=== PATIENT | female | born 1960 | race Asian ===

== ENCOUNTER → 2016-10-23 | Outpatient (CLI) | payer MEDICARE, MEDICAID ==
[~2016-10-23] MED LIST: AZITHROMYCIN250 MG ORAL; CIPROFLOXACIN500 M2 ORAL; FLUCONAZOLE100 MG ORAL; LYRICA25 MG ORAL; LYRICA75 M1 ORAL; MECLIZINE HCL25 MG ORAL; NITROFURANTOIN100 M2 ORAL; PHENAZOPYRIDIN200 MG ORAL; ROBAXIN-750750 MG PO; TRAMADOL HCL50 MG ORAL
--- NOTE | 2016-10-24 15:05 | Diagnostic Imaging Report ---
Indication: SCREEN, previous BI-RADS 4 ultrasound Technique: Bilateral Craniocaudal and mediolateral oblique views were obtained. Comparison: 08/01/2015 04/07/15, 06/03/2013, 12/09/2013. Also prior sonograms of 08/23/2015, 12/09/2013 Findings: The breasts are heterogeneously dense, which may obscure small masses. No parenchymal asymmetry nor architectural distortion. There is a biopsy marker clip in the left breast at approximately 2:00. Biopsy of this was previously performed, lesion found to be a benign fibroadenoma. There is is 9 mm nodule at the approximately 4:00 position of the left breast which has been present since 2013 and remains unchanged. Uncertain as to whether this is the same lesion that was previously biopsied or a separate lesion. Note that the marker clip is somewhat remote from the mammographic abnormality. In the left breast axillary tail, there is a 4 mm well-circumscribed nodule which in retrospect has also been present since 2012 and is unchanged, probably benign axillary tail intramammary lymph node. There is a biopsy marker clip at the 11:00 position of the right breast. Facet of benign diagnosis on the is prior biopsy. No new dominant masses. No clustered microcalcifications. No skin thickening or retraction. No axillary lymphadenopathy. No significant interim change. Impression: No new mammographic abnormality. Note, however, that previous sonogram in August of 2015 demonstrated a sonographic abnormality in the 9:00 position left breast that was thought to be enlarging, and biopsy was recommended at that time. This has apparently been scheduled but not yet performed. Recommendation for biopsy of the sonographic abnormality remains in effect. BI-RADS category: 4-suspicious abnormality Breast density BI-RADS type C-heterogeneously dense breasts, which may obscure small masses
== END | disposition home or self-care (01) ==
LOC: ULS 09:57
DX: Z12.31 Encounter for screening mammogram for malignant neoplasm of breast (principal); R10.11 Right upper quadrant pain
CPT/HCPCS: 77067

== ENCOUNTER 2016-10-29 09:06 | Outpatient (CLI) | payer MEDICARE, MEDICAID ==
--- NOTE | 2016-10-29 13:55 | Diagnostic Imaging Report ---
Indications: Right upper quadrant abdominal pain, elevated liver function tests Technique: Transabdominal real-time grayscale and duplex Doppler imaging of the upper abdomen and retroperitoneum was performed. Findings: Comparison: None. Liver normal size and surface contour, diffusely increased parenchymal echogenicity. No focal lesions. Gallbladder not identified. Bile ducts nondilated within liver. Common bile duct 9 mm. Pancreas head and body unremarkable; tail obscured. Spleen unremarkable. Right kidney unremarkable. Left kidney contains 3 mm nodular echogenic non-shadowing focus in upper pole cortex, otherwise unremarkable. Abdominal aorta, intrahepatic portion of inferior vena cava patent, normal caliber. Duplex Doppler imaging demonstrates antegrade flow in splenic, portal, hepatic veins. No ascites. IMPRESSION: Hepatic steatosis Nonvisualization of gallbladder. Correlate with surgical history. Small non-shadowing, nonobstructing stone versus other nonspecific specular reflector left kidney Remainder of exam unremarkable.
== END 2016-10-29 11:06 | disposition home or self-care (01) ==
LOC: ULS 09:06
DX: R10.11 Right upper quadrant pain (principal); R79.89 Other specified abnormal findings of blood chemistry; K76.0 Fatty (change of) liver, not elsewhere classified
CPT/HCPCS: 76700

== ENCOUNTER 2016-10-31 09:36 | Day surgery (SDC) | payer MEDICARE, MEDICAID ==
--- NOTE | 2016-10-31 13:44 | Diagnostic Imaging Report ---
Indications: Enlarging mammographic nodule 9:00 left breast, BI-RADS category 4, scheduled for ultrasound-guided percutaneous core needle biopsy Technique: Real-time grayscale imaging of the left breast Findings: Comparison: 08/23/2015 Sharply circumscribed, smoothly marginated, uniformly hypoechoic nodule in the 9:00 position of the left breast has decreased in size, now 4.5 x 2 x 4 mm. It is otherwise unchanged in appearance. Similar 7 mm nodule in the 4:00 position of the left breast is unchanged. IMPRESSION: Decrease in size of left breast 9:00 nodule, indicating benignity. Scheduled biopsy therefore not indicated and will not be performed. Stable 4:00 nodule, similar in appearance to above BI-RADS category 2 Recommendation: Routine screening mammography
== END 2016-10-31 11:36 | disposition home or self-care (01) ==
LOC: ULS 09:36 → SUR 09:36
DX: N63 Unspecified lump in breast (principal)

== ENCOUNTER 2017-04-10 14:08 | Emergency (ER) | payer MEDICARE, OTHER ==
[~2017-04-10] VITALS: Ht 157.5 cm; Wt 63.5 kg
[2017-04-10 14:33] VITALS: BP 105/69
[2017-04-10] MEDS ORDERED: Mylanta II UD 30ml ORAL ONE (14:45)
[2017-04-10] MEDS ORDERED: Dicyclomine HCl 10mg/5ml oral soln ORAL ONE (14:45)
[2017-04-10 15:27] LABS: MEAN CORPUSCULAR HEMOGLOBIN 30.7 PG (27.0-31.0); MEAN CORPUSCULAR HGB CONC 34.2 G/DL (32.0-36.0); MEAN CORPUSCULAR VOLUME 90 FL (80-99); MEAN PLATELET VOLUME 5.1 FL (6.5-10.1); PLATELET COUNT 245 K/UL (150-450); RED BLOOD COUNT 4.63 M/UL (4.20-5.40); RED CELL DISTRIBUTION WIDTH 11.9 % (11.6-14.8); WHITE BLOOD COUNT 9.3 K/UL (4.8-10.8)
[2017-04-10 15:30] LABS: BASOPHILS % (AUTO) 0.3 % (0.0-2.0); EOSINOPHILS % (AUTO) 0.1 % (0.0-3.0); MONOCYTES % (AUTO) 3.3 % (1.0-10.0); NEUTROPHILS % (AUTO) 88.2 % (45.0-75.0)
[2017-04-10 15:33] LABS: PROTHROMBIN TIME 10.1 SEC (9.30-11.50)
[2017-04-10 15:35] LABS: ANION GAP 12 mmol/L (5-15); CALCIUM 8.8 MG/DL (8.5-10.1); CARBON DIOXIDE 24 MMOL/L (21-32); CHLORIDE 105 MMOL/L (98-107); CREATININE 0.8 MG/DL (0.55-1.30); GLOMERULAR FILTRATION RATE > 60 mL/min (>60); POTASSIUM 3.7 MMOL/L (3.5-5.1); SODIUM 141 MMOL/L (136-145)
[2017-04-10 15:49] LABS: APPEARANCE,URINE CLEAR; KETONES,URINE NEGATIVE (NEGATIVE); LEUKOCYTE ESTERASE ,URINE 2+ (NEGATIVE); NITRITE,URINE NEGATIVE (NEGATIVE); PH,URINE 6.5 (4.5-8.0); PROTEIN,URINE NEGATIVE (NEGATIVE); UROBILINOGEN,URINE NORMAL MG/DL (0.0-1.0)
[2017-04-10 15:49] LABS: ALANINE AMINOTRANSFERASE 42 U/L (12-78); ALBUMIN/GLOBULIN RATIO 0.6 (1.0-2.7); ASPARTATE AMINO TRANSFERASE 38 U/L (15-37); LIPASE 117 U/L (73-393); TOTAL PROTEIN 8.7 G/DL (6.4-8.2)
[2017-04-10 16:03] LABS: BACTERIA,URINE OCCASIONAL /HPF; SQUAMOUS EPITHELIAL CELL,UR FEW /LPF (NONE/OCC); WBC,URINE 0-2 /HPF (0 - 2)
[2017-04-10 16:47] VITALS: BP 106/62
[2017-04-10] MEDS ORDERED: BENTYL10 MG ORAL (17:25)
[2017-04-10] MEDS ORDERED: ZOFRAN4 MG ORAL (17:25)
[2017-04-10 17:30] VITALS: BP 106/65
--- NOTE | 2017-04-11 10:15 | Diagnostic Imaging Report ---
Clinical Indication: Abdominal distention Technique: No oral contrast utilized, per emergency room physician request IV administration nonionic contrast. Venous phase spiral acquisition obtained through the abdomen and pelvis. Multiplanar reconstructions were generated. Total dose length product 770 mGycm. CTDIvol(s) 15 mGy. Dose reduction achieved using automated exposure control Comparison: Reference made to abdomen ultrasound dated 10/29/2016 Findings: The appendix is normal. No evidence of diverticulosis or diverticulitis. Small bowel loops are diffusely prominent in caliber and fluid-filled, particularly distally. There is a sizable duodenal diverticulum. The distal esophagus is unremarkable. The stomach is somewhat distended with food. There is suggestion of wall thickening of the gastric antrum, but it is incompletely distended. The liver is diffusely hypoattenuating, consistent with fatty change. Subcentimeter low-attenuation lesion in segment 8 is too small to characterize the gallbladder is surgically absent. There is mild ectasia of the extrahepatic bile ducts. The pancreas, spleen, are unremarkable. There is an ill-defined area of low attenuation in the interpolar region of the right kidney. There is a left upper pole low-attenuation renal lesion which is too small to characterize. No retroperitoneal or mesenteric mass or adenopathy. No pelvic mass or adenopathy. The uterus is retroverted, slightly prominent and heterogeneous. The included lung bases demonstrate posterior dependent atelectatic changes. The bones demonstrate mild degenerative spondylosis changes. Impression: Equivocal mild distal gastric wall thickening, probably artifact of under distention, process such as gastritis or peptic ulcer disease not completely excludable. Correlate with clinical findings Ill-defined low-attenuation in the interpolar region of the right kidney, could indicate an area of focal nephritis bleed The above findings were not mentioned on the [facility] preliminary report, were discussed with Dr. Kiser in the emergency room at the time of interpretation Slightly prominent fluid-filled small bowel loops distally, doubtful significance, mild enteritis changes a possibility Evidence of prior cholecystectomy. Ectatic extrahepatic bile ducts are probably related to such, particularly in view of 9 mm common bile duct described on prior ultrasound. However, downstream obstruction not completely excludable, and correlation with liver function tests is recommended Fatty liver Slightly prominent heterogeneous uterus, fibroids a possibility Subcentimeter left upper pole renal lesion, too small to characterize, most likely benign cortical cyst Other findings as noted, including degenerative spondylosis, posterior dependent pulmonary atelectatic changes, duodenal diverticulum The remaining findings are in agreement with the [facility] preliminary report The CT scanner at [facility] is accredited by the [employer] and the scans are performed using protocols designed to limit radiation exposure to as low as reasonably achievable to attain images of sufficient resolution adequate for diagnostic evaluation.
--- NOTE | 2017-04-11 13:58 | Emergency Room Report ---
History of Present Illness General Chief Complaint: Abdominal Pain Source: Patient Present Illness HPI Patient is a 56 year-old female presented after increased vomiting and diarrhea. Patient reported having gradual onset of symptoms. She reported having intermittent abdominal cramping . She denied any fever. She reported having watery diarrhea. She denied any black or bloody stools. She denied recent travel. She stated she may have eaten some bad food. She denies any hematemesis. Pain is predominantly in the left lower abdomen and was crampy in nature. Allergies: Coded Allergies: ACETAMINOPHEN (Verified Allergy, 04/01/13) CODEINE (Verified Allergy, 03/27/13) Chicken Meat (Verified Allergy, 04/01/13) HYDROCODONE (Verified Allergy, 04/01/13) IBUPROFEN (Verified Allergy, 03/27/13) Meat (Verified Allergy, 04/01/13) Patient History Past Medical History: see triage record Reviewed Nursing Documentation: PMH: Agreed, PSxH: Agreed Nursing Documentation-PMH Past Medical History: No History, Except For Hx Cardiac Problems: No - Polyneuropathy, migraine Hx Hypertension: No Hx Pacemaker: No Hx Asthma: No Hx COPD: No Hx Diabetes: No Hx Cancer: No Hx Gastrointestinal Problems: Yes - GERD Hx Dialysis: No History Of Psychiatric Problem: No Hx Neurological Problems: No Hx Cerebrovascular Accident: No Hx Seizures: No Hx Vertigo: Yes Hx Dizziness: Yes Hx Headaches: Yes Hx Numbness: Yes - BLE Hx Weakness: Yes - BLE Hx Fatigue: Yes Hx Neurologic Surgery: No Review of Systems All Other Systems: negative except mentioned in HPI Physical Exam Vital Signs Date Time Temp Pulse Resp B/P (MAP) Pulse Ox O2 Delivery O2 Flow Rate FiO2 04/10/17 14:13 98.6 112 18 112/70 97 Room Air Sp02 EP Interpretation: reviewed, normal General Appearance: normal inspection, well appearing, no apparent distress, alert Head: atraumatic ENT: normal ENT inspection, hearing grossly normal, normal voice Neck: normal inspection, full range of motion, supple, no bony tend Respiratory: normal inspection, lungs clear, normal breath sounds, no respiratory distress, no retraction, no wheezing Cardiovascular #1: regular rate, rhythm, no edema Gastrointestinal: normal inspection, normal bowel sounds, non tender, soft, no guarding, no hernia Genitourinary: no CVA tenderness Musculoskeletal: normal inspection, back normal, normal range of motion Neurologic: normal inspection, alert, oriented x3, responsive, print line feeder III-XII nml as tested, speech normal Psychiatric: normal inspection, judgement/insight normal, mood/affect normal Skin: normal inspection, normal color, no rash Medical Decision Making Diagnostic Impression: Primary Impression: Diarrhea ER Course Patient presented for abdominal pain. Differential diagnoses included ischemic bowel, appendicitis, perforated viscus, abdominal aortic aneurysm, inferior myocardial infarction, viral gastroenteritis. Because of complexity of patient' s case laboratory testing and imaging studies were ordered.The patient was given IV fluids as well as oral medications for abdominal cramping. Patient reported having improvement n her symptoms. The patient is advised to follow up with primary care doctor in 1-2 days. Patient is advised to return if any worsening condition or if any changes in status that are concerning. Labs Test 04/10/17 14:50 04/10/17 15:40 White Blood Count 9.3 K/UL (4.8-10.8) Red Blood Count 4.63 M/UL (4.20-5.40) Hemoglobin 14.2 G/DL (12.0-16.0) Hematocrit 41.6 % (37.0-47.0) Mean Corpuscular Volume 90 FL (80-99) Mean Corpuscular Hemoglobin 30.7 PG (27.0-31.0) Mean Corpuscular Hemoglobin Concent 34.2 G/DL (32.0-36.0) Red Cell Distribution Width 11.9 % (11.6-14.8) Platelet Count 245 K/UL (150-450) Mean Platelet Volume 5.1 FL (6.5-10.1) Neutrophils (%) (Auto) 88.2 % (45.0-75.0) Lymphocytes (%) (Auto) 8.0 % (20.0-45.0) Monocytes (%) (Auto) 3.3 % (1.0-10.0) Eosinophils (%) (Auto) 0.1 % (0.0-3.0) Basophils (%) (Auto) 0.3 % (0.0-2.0) Prothrombin Time 10.1 SEC (9.30-11.50) Prothromb Time International Ratio 1.0 (0.9-1.1) Activated Partial Thromboplast Time 29 SEC (23-33) Sodium Level 141 MMOL/L (136-145) Potassium Level 3.7 MMOL/L (3.5-5.1) Chloride Level 105 MMOL/L (98-107) Carbon Dioxide Level 24 MMOL/L (21-32) Anion Gap 12 mmol/L (5-15) Blood Urea Nitrogen 13 mg/dL (7-18) Creatinine 0.8 MG/DL (0.55-1.30) Estimat Glomerular Filtration Rate > 60 mL/min (>60) Glucose Level 105 MG/DL (74-106) Calcium Level 8.8 MG/DL (8.5-10.1) Total Bilirubin 0.7 MG/DL (0.2-1.0) Aspartate Amino Transf (AST/SGOT) 38 U/L (15-37) Alanine Aminotransferase (ALT/SGPT) 42 U/L (12-78) Alkaline Phosphatase 71 U/L (46-116) Troponin I < 0.017 ng/mL (0.000-0.056) Total Protein 8.7 G/DL (6.4-8.2) Albumin 3.4 G/DL (3.4-5.0) Globulin 5.3 g/dL Albumin/Globulin Ratio 0.6 (1.0-2.7) Lipase 117 U/L (73-393) Urine Color Pale yellow Urine Appearance Clear Urine pH 6.5 (4.5-8.0) Urine Specific [place] 1.010 (1.005-1.035) Urine Protein Negative (NEGATIVE) Urine Glucose (UA) Negative (NEGATIVE) Urine Ketones Negative (NEGATIVE) Urine Occult Blood 2+ (NEGATIVE) Urine Nitrite Negative (NEGATIVE) Urine Bilirubin Negative (NEGATIVE) Urine Urobilinogen Normal MG/DL (0.0-1.0) Urine Leukocyte Esterase 2+ (NEGATIVE) Urine RBC 2-4 /HPF (0 - 2) Urine WBC 0-2 /HPF (0 - 2) Urine Squamous Epithelial Cells Few /LPF (NONE/OCC) Urine Bacteria Occasional /HPF (NONE) Urine HCG, Qualitative Negative Last Vital Signs Date Time Temp Pulse Resp B/P (MAP) Pulse Ox O2 Delivery O2 Flow Rate FiO2 04/10/17 17:30 98.9 111 16 106/65 99 Room Air Status: improved Disposition: HOME, SELF-CARE Condition: Stable Scripts Dicyclomine Hcl* (BENTYL*) 10 Mg Capsule 10 MG ORAL FOUR TIMES A DAY, #30 CAP Prov: Ash Gardner 04/10/17 Ondansetron (Zofran) 4 Mg Tablet 4 MG ORAL Q6H Y for Nausea & Vomiting, #30 TAB 0 Refills Prov: Ash Gardner 04/10/17 Referrals: NON PHYSICIAN (PCP) Patient Instructions: Abdominal Pain, Adult Ash Gardner Apr 11, 2017 13:58
--- NOTE | 2017-04-13 15:38 | Cardiology Report ---
APPROVED REPORT EKG Measurement Heart [id number] Sinus tachycardia Otherwise normal ECG
== END 2017-04-10 17:30 | disposition home or self-care (01) ==
LOC: EMR 14:50
DX: R19.7 Diarrhea, unspecified (principal); R11.2 Nausea with vomiting, unspecified; R10.9 Unspecified abdominal pain; K21.9 Gastro-esophageal reflux disease without esophagitis; Z88.6 Allergy status to analgesic agent; G62.9 Polyneuropathy, unspecified; K76.0 Fatty (change of) liver, not elsewhere classified
CPT/HCPCS: 36415; 74177; 80053; 81003; 81025; 83690; 84484; 85025; 85610; 85730; 86850; 86900; 86901; 93005; 96361; 96374; 96375; 99284; J2405; Q9967

== ENCOUNTER 2017-11-15 09:24 | Emergency (ER) | payer MEDICARE, MEDICAID ==
[~2017-11-15] VITALS: Ht 157.5 cm; Wt 62.6 kg
[~2017-11-15 09:24] MED LIST changes: +BENTYL10 MG ORAL; +ZOFRAN4 MG ORAL
[2017-11-15] MEDS ORDERED: DEXILANT60 MG ORAL (09:45)
[2017-11-15] MEDS ORDERED: HYDROCODON-ACE1 EA15 ORAL (09:45)
[2017-11-15] MEDS ORDERED: LORAZEPAM1 MG ORAL (09:46)
[2017-11-15] MEDS ORDERED: CREON DR 36,001 EACH PO (09:47)
[2017-11-15] MEDS ORDERED: CAFFEINE ORAL (09:49)
[2017-11-15] MEDS ORDERED: ASPIRIN ORAL (09:49)
[2017-11-15] MEDS ORDERED: BUTALBITAL ORAL (09:49)
[2017-11-15 09:51] VITALS: BP 100/65
[2017-11-15] MEDS ORDERED: Lidocaine 2% Visc 15ml soln ORAL ONE (10:00)
[2017-11-15] MEDS ORDERED: Dicyclomine HCl 10mg/5ml oral soln ORAL ONE (10:00)
[2017-11-15] MEDS ORDERED: Mylanta II UD 30ml ORAL ONE (10:00)
[2017-11-15 10:18] LABS: BASOPHILS % (AUTO) 0.9 % (0.0-2.0); EOSINOPHILS % (AUTO) 1.9 % (0.0-3.0); HEMATOCRIT 39.3 % (37.0-47.0); HEMOGLOBIN 13.2 G/DL (12.0-16.0); LYMPHOCYTES % (AUTO) 33.2 % (20.0-45.0); MEAN CORPUSCULAR VOLUME 87 FL (80-99); MONOCYTES % (AUTO) 6.6 % (1.0-10.0); NEUTROPHILS % (AUTO) 57.5 % (45.0-75.0); PLATELET COUNT 247 K/UL (150-450); RED CELL DISTRIBUTION WIDTH 12.3 % (11.6-14.8); WHITE BLOOD COUNT 6.4 K/UL (4.8-10.8)
[2017-11-15 10:19] LABS: APPEARANCE,URINE CLEAR; BILIRUBIN, URINE NEGATIVE (NEGATIVE); COLOR,URINE PALE YELLOW; GLUCOSE, URINE (UA) NEGATIVE (NEGATIVE); KETONES,URINE NEGATIVE (NEGATIVE); LEUKOCYTE ESTERASE ,URINE 2+ (NEGATIVE); NITRITE,URINE NEGATIVE (NEGATIVE); PH,URINE 5 (4.5-8.0); PROTEIN,URINE NEGATIVE (NEGATIVE); UROBILINOGEN,URINE NORMAL MG/DL (0.0-1.0)
[2017-11-15 10:35] LABS: ANION GAP 7 mmol/L (5-15); BLOOD UREA NITROGEN 17 mg/dL (7-18); CARBON DIOXIDE 28 MMOL/L (21-32); CHLORIDE 105 MMOL/L (98-107); CREATININE 0.7 MG/DL (0.55-1.30); POTASSIUM 4.3 MMOL/L (3.5-5.1); SODIUM 140 MMOL/L (136-145)
[2017-11-15 10:39] LABS: ALANINE AMINOTRANSFERASE 46 U/L (12-78); ALBUMIN 3.6 G/DL (3.4-5.0); ALBUMIN/GLOBULIN RATIO 0.7 (1.0-2.7); ALKALINE PHOSPHATASE 90 U/L (46-116); ASPARTATE AMINO TRANSFERASE 30 U/L (15-37); BILIRUBIN,TOTAL 0.5 MG/DL (0.2-1.0)
[2017-11-15] MEDS ORDERED: Norco 5mg/325mg tab ORAL ONE (11:15)
[2017-11-15 11:17] VITALS: BP 95/59
[2017-11-15] MEDS ORDERED: NORCO 5-325 TA1 EACH ORAL (13:34)
[2017-11-15 14:01] VITALS: BP 113/63
[2017-11-15 14:03] VITALS: BP 113/63
--- NOTE | 2017-11-15 14:03 | Emergency Room Report ---
History of Present Illness General Chief Complaint: Abdominal Pain Source: Patient Present Illness HPI 57-year-old female presents ED complaining of abdominal pain. States she's had this pain for the last 4 months. Pain is localized upper abdomens and right upper quadrant. Pain is 10 out of 10, sharp, nonradiating. Notes history of acid reflux. States they her pancreas is "inflamed". States her medications are not helping. Supposed to be referred to a specialist by her PMD and is waiting for referral. Denies chest pain or shortness of breath. Denies nausea or vomiting. No other aggravating relieving factors. Denies any other associated symptoms Allergies: Coded Allergies: CODEINE (Verified Allergy, Unknown, 11/15/17) Chicken Meat (Verified Allergy, Unknown, 11/15/17) IBUPROFEN (Verified Allergy, Unknown, 11/15/17) Meat (Verified Allergy, Unknown, 11/15/17) Patient History Past Medical History: none Past Surgical History: emanuel Pertinent Family History: none Social History: Denies: smoking, alcohol use, drug use Now: No Immunizations: UTD Reviewed Nursing Documentation: PMH: Agreed; PSxH: Agreed Nursing Documentation-PMH Past Medical History: No History, Except For Hx Cardiac Problems: No - Polyneuropathy, migraine Hx Hypertension: No Hx Pacemaker: No Hx Asthma: No Hx COPD: No Hx Diabetes: No Hx Cancer: No Hx Gastrointestinal Problems: No Hx Dialysis: No History Of Psychiatric Problem: No Hx Neurological Problems: No Hx Cerebrovascular Accident: No Hx Seizures: No Hx Vertigo: Yes Hx Dizziness: Yes Hx Headaches: Yes Hx Numbness: Yes - BLE Hx Weakness: Yes - BLE Hx Fatigue: Yes Hx Neurologic Surgery: No Review of Systems All Other Systems: negative except mentioned in HPI Physical Exam Vital Signs Date Time Temp Pulse Resp B/P (MAP) Pulse Ox O2 Delivery O2 Flow Rate FiO2 11/15/17 09:34 97.8 73 16 100/65 98 Room Air 97.9 Sp02 EP Interpretation: reviewed, normal General Appearance: no apparent distress, alert, GCS 15, non-toxic Head: normocephalic, atraumatic Eyes: bilateral eye normal inspection, bilateral eye PERRL ENT: hearing grossly normal, normal pharynx, no angioedema, normal voice Neck: full range of motion, supple/symm/no masses Respiratory: chest non-tender, lungs clear, normal breath sounds, speaking full sentences Cardiovascular #1: regular rate, rhythm, no edema Cardiovascular #2: 2+ carotid (R), 2+ carotid (L), 2+ radial (R), 2+ radial (L) , 2+ dorsalis pedis (R), 2+ dorsalis pedis (L) Gastrointestinal: normal bowel sounds, soft, non-distended, no guarding, no rebound, tenderness - RUQ Rectal: deferred Genitourinary: normal inspection, no CVA tenderness Musculoskeletal: back normal, gait/station normal, normal range of motion, non- tender Neurologic: alert, oriented x3, responsive, motor strength/tone normal, sensory intact, speech normal Psychiatric: judgement/insight normal, memory normal, mood/affect normal, no suicidal/homicidal ideation Reflexes: 3+ bicep (R), 3+ bicep (L), 3+ tricep (R), 3+ tricep (L), 3+ knee (R) , 3+ knee (L) Skin: normal color, no rash, warm/dry, well hydrated Lymphatic: no adenopathy Medical Decision Making Diagnostic Impression: Primary Impression: Fatty liver Additional Impression: Abdominal pain Qualified Codes: R10.11 - Right upper quadrant pain ER Course Hospital Course 57-year-old M presents to ED with abdominal pain Differential diagnosis includes-appendicitis, cholecystitis, small bowel obstruction, gastritis, Clinical course Patient placed on stretcher. After initial history and physical I ordered labs , IV fluids, pain medications and ABD US Labs - no leukocytosis, electrolytes ok, LFTs normal, UA unremarkable ABD US - fatty liver, no acute process Upon reassessment, patient states pain has improved. Discussed findings with patient. Patient appears nontoxic. Soft abdomen. Tolerating by mouth intake. Patient states for discharge pending outpatient follow-up I feel this is a highly complex case requiring extensive working including EKG/ Rhythm strip, Xray/CT/US, Blood/urine lab work, repeat exams while in ED, and administration of strong opiates/narcotics for pain control, admission to hospital or close patient follow up. Diagnosis - fatty liver, abdominal pain Stable and discharged to home with Rx [place]. Followup with PMD. Return to ED if symptoms recur or worsen Labs Test 11/15/17 10:05 White Blood Count 6.4 K/UL (4.8-10.8) Red Blood Count 4.50 M/UL (4.20-5.40) Hemoglobin 13.2 G/DL (12.0-16.0) Hematocrit 39.3 % (37.0-47.0) Mean Corpuscular Volume 87 FL (80-99) Mean Corpuscular Hemoglobin 29.3 PG (27.0-31.0) Mean Corpuscular Hemoglobin Concent 33.5 G/DL (32.0-36.0) Red Cell Distribution Width 12.3 % (11.6-14.8) Platelet Count 247 K/UL (150-450) Mean Platelet Volume 4.9 FL (6.5-10.1) Neutrophils (%) (Auto) 57.5 % (45.0-75.0) Lymphocytes (%) (Auto) 33.2 % (20.0-45.0) Monocytes (%) (Auto) 6.6 % (1.0-10.0) Eosinophils (%) (Auto) 1.9 % (0.0-3.0) Basophils (%) (Auto) 0.9 % (0.0-2.0) Urine Color Pale yellow Urine Appearance Clear Urine pH 5 (4.5-8.0) Urine Specific [place] 1.010 (1.005-1.035) Urine Protein Negative (NEGATIVE) Urine Glucose (UA) Negative (NEGATIVE) Urine Ketones Negative (NEGATIVE) Urine Occult Blood 1+ (NEGATIVE) Urine Nitrite Negative (NEGATIVE) Urine Bilirubin Negative (NEGATIVE) Urine Urobilinogen Normal MG/DL (0.0-1.0) Urine Leukocyte Esterase 2+ (NEGATIVE) Urine RBC 0-2 /HPF (0 - 2) Urine WBC 2-4 /HPF (0 - 2) Urine Squamous Epithelial Cells Few /LPF (NONE/OCC) Urine Bacteria Occasional /HPF (NONE) Sodium Level 140 MMOL/L (136-145) Potassium Level 4.3 MMOL/L (3.5-5.1) Chloride Level 105 MMOL/L (98-107) Carbon Dioxide Level 28 MMOL/L (21-32) Anion Gap 7 mmol/L (5-15) Blood Urea Nitrogen 17 mg/dL (7-18) Creatinine 0.7 MG/DL (0.55-1.30) Estimat Glomerular Filtration Rate > 60 mL/min (>60) Glucose Level 96 MG/DL (74-106) Calcium Level 9.0 MG/DL (8.5-10.1) Total Bilirubin 0.5 MG/DL (0.2-1.0) Aspartate Amino Transf (AST/SGOT) 30 U/L (15-37) Alanine Aminotransferase (ALT/SGPT) 46 U/L (12-78) Alkaline Phosphatase 90 U/L (46-116) Total Protein 8.9 G/DL (6.4-8.2) Albumin 3.6 G/DL (3.4-5.0) Globulin 5.3 g/dL Albumin/Globulin Ratio 0.7 (1.0-2.7) Lipase 203 U/L (73-393) CT/MRI/US Diagnostic Results CT/MRI/US Diagnostic Results : Imaging Test Ordered: RUQ US Impression fatty liver. no acute process Last Vital Signs Date Time Temp Pulse Resp B/P (MAP) Pulse Ox O2 Delivery O2 Flow Rate FiO2 11/15/17 11:49 208.2 11/15/17 11:17 62 22 95/59 100 Room Air Status: improved Disposition: HOME, SELF-CARE Condition: Stable Scripts Hydrocodone Bit/Acetaminophen 5-325* (NORCO 5-325*) 1 Each Tablet 1 TAB ORAL Q6H PRN for For Pain, #10 TAB 0 Refills Prov: Deepak Quiroga MD 11/15/17 Referrals: Ty Guerrier MD Patient Instructions: Fatty Liver Deepak Quiroga MD Nov 15, 2017 14:03
--- NOTE | 2017-11-15 16:16 | Diagnostic Imaging Report ---
EXAM: US Abdomen Complete CLINICAL HISTORY: ABD PAIN TECHNIQUE: Real-time ultrasound of the abdomen (complete) with image documentation. COMPARISON: No relevant prior studies available. FINDINGS: Liver: Echogenic liver that may suggest fatty infiltration or hepatocellular disease. Gallbladder: Cholecystectomy. Common bile duct measures 9 mm, within normal limits post cholecystectomy. Common bile duct: Unremarkable as visualized. Pancreas: Unremarkable as visualized. Kidneys: No hydronephrosis. Can't exclude small complex left renal cyst. Spleen: No splenomegaly. Aorta: Limited visualization of the aorta. Inferior vena cava: Not visualized IMPRESSION: Cholecystectomy. Common bile duct measures 9 mm, within normal limits post cholecystectomy.
== END 2017-11-15 14:05 | disposition home or self-care (01) ==
LOC: EMR 10:19
DX: K76.0 Fatty (change of) liver, not elsewhere classified (principal); K21.9 Gastro-esophageal reflux disease without esophagitis; Z88.6 Allergy status to analgesic agent; Z91.018 Allergy to other foods
CPT/HCPCS: 36415; 76700; 80053; 81003; 83690; 85025; 96360; 96374; 96375; 99284; J2405; S0028

== ENCOUNTER 2018-02-03 17:59 | Observation (INO) | payer MEDICARE, MEDICAID ==
[~2018-02-03] VITALS: Ht 157.5 cm; Wt 53.5 kg
[~2018-02-03 17:59] MED LIST changes: +ASPIRIN ORAL; +BUTALBITAL ORAL; +CAFFEINE ORAL; +CREON DR 36,001 EACH PO; +DEXILANT60 MG ORAL; +HYDROCODON-ACE1 EA15 ORAL; +LORAZEPAM1 MG ORAL; +NORCO 5-325 TA1 EACH ORAL
[2018-02-03 18:05] VITALS: BP 135/78
[2018-02-03] MEDS ORDERED: Sodium Chloride 500ML 500 ML IV ONE ×2 (18:20→19:45)
[2018-02-03] MEDS ORDERED: Meclizine 25mg tab ORAL ONE (18:30)
--- NOTE | 2018-02-03 19:12 | Emergency Room Report ---
History of Present Illness General Chief Complaint: General Complaint Source: Patient, Medical Record Present Illness HPI Patient is a 57-year-old female sent in by Dr. Adam Guerrier after increased epigastric discomfort and nausea. Patient had previous history of neuropathy and had been previously started on IVIG. The patient was noted to have increased epigastric discomfort was started on IV pain medications. Patient subsequent became nauseated and felt dizzy. She reported having increased epigastric pain. Patient previously been taking acid blockers for stomach. She denied any hematemesis or recent bloody stools. The patient presented increased generalized pain. Allergies: Coded Allergies: CODEINE (Verified Allergy, Unknown, 11/15/17) Chicken Meat (Verified Allergy, Unknown, 11/15/17) IBUPROFEN (Verified Allergy, Unknown, 11/15/17) Meat (Verified Allergy, Unknown, 11/15/17) Patient History Past Medical History: see triage record Last Menstrual Period: menopause Reviewed Nursing Documentation: PMH: Agreed; PSxH: Agreed Nursing Documentation-PMH Past Medical History: No History, Except For Hx Cardiac Problems: No - Polyneuropathy, migraine Hx Hypertension: No Hx Pacemaker: No Hx Asthma: No Hx COPD: No Hx Diabetes: No Hx Cancer: No Hx Gastrointestinal Problems: No Hx Dialysis: No Hx Neurological Problems: No Hx Cerebrovascular Accident: No Hx Seizures: No Hx Vertigo: Yes Hx Dizziness: Yes Hx Headaches: Yes Hx Numbness: Yes - BLE Hx Weakness: Yes - BLE Hx Fatigue: Yes Hx Neurologic Surgery: No Review of Systems All Other Systems: negative except mentioned in HPI Physical Exam Vital Signs Date Time Temp Pulse Resp B/P (MAP) Pulse Ox O2 Delivery O2 Flow Rate FiO2 02/03/18 18:04 98.1 70 18 131/77 98 Room Air 98.1 Sp02 EP Interpretation: reviewed, normal General Appearance: normal inspection, well appearing, no apparent distress, alert, GCS 15, Chronically Ill Head: atraumatic ENT: normal ENT inspection, hearing grossly normal, normal voice Neck: normal inspection, full range of motion, supple, no bony tend Respiratory: normal inspection, lungs clear, normal breath sounds, no respiratory distress, no retraction, no wheezing Cardiovascular #1: normal peripheral pulses, regular rate, rhythm, no edema Gastrointestinal: normal inspection, normal bowel sounds, non tender, soft, no guarding, no hernia Genitourinary: no CVA tenderness Musculoskeletal: normal inspection, back normal, normal range of motion Neurologic: normal inspection, alert, oriented x3, responsive, board certified family physician III-XII nml as tested, speech normal Psychiatric: normal inspection, judgement/insight normal, mood/affect normal Skin: normal inspection, normal color, no rash Medical Decision Making Diagnostic Impression: Primary Impression: CIDP (chronic inflammatory demyelinating polyneuropathy) Additional Impressions: Abdominal pain Vertigo ER Course Patient presented for abdominal pain. Differential diagnoses included ischemic bowel, appendicitis, perforated viscus, abdominal aortic aneurysm, inferior myocardial infarction, viral gastroenteritis Because of complexity of patient's case laboratory testing and imaging studies were ordered.The laboratory testing was unremarkable. Patient was given IV fluids as well as IV antiemetics. The patient was noted to have a persistent vomiting. Patient been given pain medications at Dr. Guerrier's office.Patient was discussed with Dr. Fly Wagner is covering for [facility]. The patient be admitted due to persistent vomiting. Labs Test 02/03/18 18:30 White Blood Count 9.6 K/UL (4.8-10.8) Red Blood Count 4.13 M/UL (4.20-5.40) Hemoglobin 12.5 G/DL (12.0-16.0) Hematocrit 34.8 % (37.0-47.0) Mean Corpuscular Volume 84 FL (80-99) Mean Corpuscular Hemoglobin 30.3 PG (27.0-31.0) Mean Corpuscular Hemoglobin Concent 35.9 G/DL (32.0-36.0) Red Cell Distribution Width 11.6 % (11.6-14.8) Platelet Count 221 K/UL (150-450) Mean Platelet Volume 4.7 FL (6.5-10.1) Neutrophils (%) (Auto) 84.8 % (45.0-75.0) Lymphocytes (%) (Auto) 12.2 % (20.0-45.0) Monocytes (%) (Auto) 2.3 % (1.0-10.0) Eosinophils (%) (Auto) 0.1 % (0.0-3.0) Basophils (%) (Auto) 0.6 % (0.0-2.0) Prothrombin Time 11.6 SEC (9.30-11.50) Prothromb Time International Ratio 1.1 (0.9-1.1) Activated Partial Thromboplast Time 30 SEC (23-33) Sodium Level 137 MMOL/L (136-145) Potassium Level 3.6 MMOL/L (3.5-5.1) Chloride Level 104 MMOL/L (98-107) Carbon Dioxide Level 23 MMOL/L (21-32) Anion Gap 10 mmol/L (5-15) Blood Urea Nitrogen 15 mg/dL (7-18) Creatinine 0.7 MG/DL (0.55-1.30) Estimat Glomerular Filtration Rate > 60 mL/min (>60) Glucose Level 111 MG/DL (74-106) Calcium Level 8.8 MG/DL (8.5-10.1) Total Bilirubin 0.4 MG/DL (0.2-1.0) Aspartate Amino Transf (AST/SGOT) 43 U/L (15-37) Alanine Aminotransferase (ALT/SGPT) 61 U/L (12-78) Alkaline Phosphatase 108 U/L (46-116) Troponin I 0.004 ng/mL (0.000-0.056) Total Protein 9.6 G/DL (6.4-8.2) Albumin 3.2 G/DL (3.4-5.0) Globulin 6.4 g/dL Albumin/Globulin Ratio 0.5 (1.0-2.7) Lipase 155 U/L (73-393) EKG Diagnostic Results Rate: normal Rhythm: NSR ST Segments: other - incomplete RBBB, no acute st changes Last Vital Signs Date Time Temp Pulse Resp B/P (MAP) Pulse Ox O2 Delivery O2 Flow Rate FiO2 02/03/18 18:04 98.1 70 18 131/77 98 Room Air 98.1 Status: unchanged Disposition: ADMITTED INPATIENT Condition: Serious Ash Gardner MD Feb 03, 2018 19:12
[2018-02-03 19:16] LABS: BASOPHILS % (AUTO) 0.6 % (0.0-2.0); EOSINOPHILS % (AUTO) 0.1 % (0.0-3.0); HEMATOCRIT 34.8 % (37.0-47.0); HEMOGLOBIN 12.5 G/DL (12.0-16.0); LYMPHOCYTES % (AUTO) 12.2 % (20.0-45.0); MEAN CORPUSCULAR VOLUME 84 FL (80-99); MONOCYTES % (AUTO) 2.3 % (1.0-10.0); NEUTROPHILS % (AUTO) 84.8 % (45.0-75.0); PLATELET COUNT 221 K/UL (150-450); RED BLOOD COUNT 4.13 M/UL (4.20-5.40); RED CELL DISTRIBUTION WIDTH 11.6 % (11.6-14.8); WHITE BLOOD COUNT 9.6 K/UL (4.8-10.8)
[2018-02-03 19:33] LABS: ANION GAP 10 mmol/L (5-15); BLOOD UREA NITROGEN 15 mg/dL (7-18); CALCIUM 8.8 MG/DL (8.5-10.1); CARBON DIOXIDE 23 MMOL/L (21-32); CHLORIDE 104 MMOL/L (98-107); CREATININE 0.7 MG/DL (0.55-1.30); POTASSIUM 3.6 MMOL/L (3.5-5.1); SODIUM 137 MMOL/L (136-145)
[2018-02-03 19:39] LABS: INR 1.1 (0.9-1.1)
[2018-02-03 19:40] LABS: ALANINE AMINOTRANSFERASE 61 U/L (12-78); ALBUMIN 3.2 G/DL (3.4-5.0); ALBUMIN/GLOBULIN RATIO 0.5 (1.0-2.7); ALKALINE PHOSPHATASE 108 U/L (46-116); ASPARTATE AMINO TRANSFERASE 43 U/L (15-37); BILIRUBIN,TOTAL 0.4 MG/DL (0.2-1.0)
[2018-02-03 21:14] VITALS: BP 107/47
[2018-02-03 21:14] LABS: APPEARANCE,URINE CLEAR; BILIRUBIN, URINE NEGATIVE (NEGATIVE); COLOR,URINE PALE YELLOW; GLUCOSE, URINE (UA) NEGATIVE (NEGATIVE); KETONES,URINE NEGATIVE (NEGATIVE); LEUKOCYTE ESTERASE ,URINE 1+ (NEGATIVE); NITRITE,URINE NEGATIVE (NEGATIVE); PROTEIN,URINE NEGATIVE (NEGATIVE); UROBILINOGEN,URINE NORMAL MG/DL (0.0-1.0)
[2018-02-03 22:18] VITALS: BP 115/68
[2018-02-03] MEDS ORDERED: LIBRAX1 EA ORAL (22:37)
[2018-02-03] MEDS ORDERED: MECLIZINE HCL25 MG ORAL (22:37)
[2018-02-03] MEDS ORDERED: FIORINAL 50-321 EACH PO ×2 (22:37)
[2018-02-03] MEDS ORDERED: LYRICA50 MG ORAL (22:37)
[2018-02-03] MEDS ORDERED: CYCLOBENZAPRINE10 MG ORAL (22:37)
[2018-02-03] MEDS ORDERED: PRIVIGEN50 ML IV (22:37)
[2018-02-03] MEDS ORDERED: CREON DR 36,001 EACH PO (22:37)
[2018-02-03] MEDS ORDERED: NORCO 5-325 TA1 EACH ORAL (22:37)
[2018-02-03] MEDS ORDERED: DEXILANT60 MG ORAL (22:37)
[2018-02-03] MEDS ORDERED: FAMOTIDINE20 MG ORAL (22:37)
[2018-02-03] MEDS ORDERED: Norco 5mg/325mg tab ORAL PRN (23:45)
[2018-02-03] MEDS ORDERED: Meclizine 25mg tab ORAL PRN (23:45)
[2018-02-04] MEDS: D5 1/2NS 1,000 ML IV SCH ×2 (00:46→12:35)
[2018-02-04 06:10] LABS: BASOPHILS % (AUTO) 0.8 % (0.0-2.0); HEMATOCRIT 32.5 % (37.0-47.0); HEMOGLOBIN 11.2 G/DL (12.0-16.0); LYMPHOCYTES % (AUTO) 28.8 % (20.0-45.0); MEAN CORPUSCULAR VOLUME 86 FL (80-99); MONOCYTES % (AUTO) 6.3 % (1.0-10.0); NEUTROPHILS % (AUTO) 61.1 % (45.0-75.0); PLATELET COUNT 220 K/UL (150-450); RED CELL DISTRIBUTION WIDTH 11.8 % (11.6-14.8); WHITE BLOOD COUNT 7.9 K/UL (4.8-10.8)
[2018-02-04 06:47] LABS: ALANINE AMINOTRANSFERASE 52 U/L (12-78); ALBUMIN 2.8 G/DL (3.4-5.0); ALBUMIN/GLOBULIN RATIO 0.5 (1.0-2.7); ALKALINE PHOSPHATASE 91 U/L (46-116); AMYLASE 55 U/L (25-115); ANION GAP 2 mmol/L (5-15); ASPARTATE AMINO TRANSFERASE 30 U/L (15-37); BILIRUBIN,TOTAL 0.6 MG/DL (0.2-1.0); BLOOD UREA NITROGEN 12 mg/dL (7-18); CALCIUM 8.6 MG/DL (8.5-10.1); CARBON DIOXIDE 28 MMOL/L (21-32); CHLORIDE 109 MMOL/L (98-107); CREATININE 0.8 MG/DL (0.55-1.30); POTASSIUM 3.9 MMOL/L (3.5-5.1); SODIUM 139 MMOL/L (136-145)
[2018-02-04 08:00] VITALS: BP 104/66
[2018-02-04] MEDS: Lac Hydrin 12% Lotion 8oz TOPIC SCH ×2 (09:00→09:07)
[2018-02-04] MEDS ORDERED: Lyrica 50mg cap ORAL SCH (09:00)
[2018-02-04] MEDS: Cyclobenzaprine 10mg Tab ORAL SCH ×2 (09:07→13:00)
[2018-02-04 12:00] VITALS: BP 99/61
[2018-02-04 13:00] VITALS: BP 102/64
[2018-02-04] MEDS ORDERED: Pancrease Cap ORAL SCH (13:00)
[2018-02-04] MEDS ORDERED: D5 1/2NS 1000ml IV ONE (13:19)
--- NOTE | 2018-02-04 14:07 | History and Physical ---
History of Present Illness General Date patient seen: Feb 04, 2018 Time patient seen: 10:00 Reason for Hospitalization: Abdominal pain and dizziness Present Illness HPI 57 year old woman with history of CIDP on IVIg infusions, migraines, chronic abdominal pain who presents with general weakness, dizziness and burning epigastric discomfort after getting an IVIg infusion. She did not feel comfortable going home and was referred to the ED for evaluation. She denies chest pain, dyspnea, fever, chills, diarrhea, constipation. Allergies: Coded Allergies: CODEINE (Verified Allergy, Unknown, 11/15/17) Chicken Meat (Verified Allergy, Unknown, 11/15/17) IBUPROFEN (Verified Allergy, Unknown, 11/15/17) Meat (Verified Allergy, Unknown, 11/15/17) Medication History Scheduled Aspirin/Caffeine/Butalbital (Fiorinal 50-325-40 mg Capsule), 1 EA PO BID, ( Reported) Azithromycin* (Zithromax*), 250 MG ORAL DAILY Chlordiazepoxide/Clidinium (Librax Capsule), 1 EA ORAL EVERY 8 HOURS, (Reported) Cyclobenzaprine Hcl* (Flexeril*), 10 MG ORAL THREE TIMES A DAY, (Reported) Dexlansoprazole (Dexilant), 60 MG ORAL DAILY, (Reported) Dexlansoprazole (Dexilant), 60 MG ORAL DAILY, (Reported) Dicyclomine Hcl* (Bentyl*), 10 MG ORAL FOUR TIMES A DAY Famotidine (Famotidine), 20 MG ORAL TWICE A DAY, (Reported) Fluconazole (Fluconazole), 100 MG ORAL DAILY Immune Globulin,Gamma(Igg) (Privigen), 30 ML IV Q 2 WEEKS, (Reported) Lipase/Protease/Amylase (Creon Dr 36,000 Units Capsule), 3 EACH PO Q AC, ( Reported) Meclizine Hcl* (Meclizine*), 25 MG ORAL THREE TIMES A DAY, (Reported) Methocarbamol* (Robaxin-750*), 750 MG PO PRN, (Reported) Nitrofurantoin Monohyd/M-Cryst* (Macrobid 100 Mg*), 100 MG ORAL EVERY 12 HOURS Phenazopyridine Hcl* (Pyridium*), 200 MG ORAL THREE TIMES A DAY Pregabalin* (Lyrica*), 75 MG ORAL THREE TIMES A DAY, (Reported) Tramadol Hcl* (Ultram*), 50 MG ORAL TID, (Reported) Scheduled PRN Hydrocodone Bit/Acetaminophen 5-325* ([place] 5-325*), 1 TAB ORAL Q6H PRN for For Pain Lorazepam* (Lorazepam*), 1 MG ORAL THREE TIMES A DAY PRN for For Anxiety, ( Reported) Ondansetron (Zofran), 4 MG ORAL Q6H PRN for Nausea & Vomiting [Asa/Butal/Caff], 1 CAP ORAL EVERY 6 HOURS PRN for For Pain, (Reported) Discontinued Medications Aspirin/Caffeine/Butalbital (Fiorinal 50-325-40 mg Capsule), 1 EA PO, (Reported) Discontinued Reason: MD discontinued med Hydrocodone Bit/Acetaminophen 5-325* ([place] 5-325*), 1 TAB ORAL Q4-6 PRN for For Pain, (Reported) Discontinued Reason: MD discontinued med Hydrocodone/Acetaminophen 5-325* (Hydrocodone/Acetaminophen 5-325*), 1 TAB ORAL Q4H PRN for For Pain, (Reported) Discontinued Reason: MD discontinued med Lipase/Protease/Amylase (Creon Dr 36,000 Units Capsule), 1 EACH PO, (Reported) Discontinued Reason: MD discontinued med Meclizine Hcl* (Meclizine*), 25 MG ORAL DAILY, (Reported) Discontinued Reason: MD discontinued med Pregabalin (Lyrica), 50 MG ORAL DAILY, (Reported) Discontinued Reason: MD discontinued med Patient History Healthcare decision maker SELF Resuscitation status Full Code Advanced Directive on File Past Medical/Surgical History Past Medical/Surgical History: (1) Chronic tension headache (2) Labyrinthine dysfunction (3) Vertigo (4) CIDP (chronic inflammatory demyelinating polyneuropathy) Family History Family History: No history of heart disease or stroke Social History Social History: (1) No tobacco use Review of Systems Constitutional: Denies: chills, sweats, fever Eye: Denies: eye pain, blurred vision ENT: Denies: ear pain, ear discharge Respiratory: Denies: orthopnea, shortness of breath Cardiovascular: Denies: chest pain, edema, palpitations Gastrointestinal: Reports: abdominal pain Genitourinary: Denies: discharge, frequency Musculoskeletal: Denies: back pain, joint pain Skin: Denies: rash Psychiatric: Denies: anxiety Neurological: Reports: dizziness Endocrine: Denies: excessive sweating Hematologic/Lymphatic: Denies: anemia Physical Exam General Appearance: no apparent distress, alert HEENT: normocephalic, atraumatic Neck: non-tender, normal inspection Respiratory/Chest: chest wall non-tender, lungs clear Cardiovascular/Chest: normal peripheral pulses, normal rate Abdomen: normal bowel sounds, non tender Extremities: normal range of motion, non-tender Skin Exam: normal pigmentation Neurologic: director of social services II-XII grossly normal, no motor/sensory deficits, alert, oriented x 3 Last 24 Hour Vital Signs Date Time Temp Pulse Resp B/P (MAP) Pulse Ox O2 Delivery O2 Flow Rate FiO2 02/04/18 13:00 98.2 68 20 102/64 (77) 98 98.2 02/04/18 12:00 98.1 65 20 99/61 (74) 98 98.1 02/04/18 09:00 Room Air 02/04/18 08:00 98.1 71 18 104/66 (79) 100 98.1 02/04/18 01:49 Room Air 02/03/18 22:18 97.0 62 20 115/68 (84) 100 97.0 02/03/18 22:05 97.7 63 22 107/47 98 Room Air 97.7 02/03/18 21:14 97.7 63 22 107/47 98 Room Air 97.7 02/03/18 18:05 98.1 72 18 135/78 98 Room Air 98.1 02/03/18 18:04 98.1 70 18 131/77 98 Room Air 98.1 Intake and Output 02/03/18 02/04/18 19:00 07:00 Intake Total 1225 ml Balance 1225 ml Intake IV Total 1075 ml Other 150 ml # Voids 3 # Bowel Movements 1 Laboratory Tests Test 02/03/18 18:30 02/03/18 20:40 02/04/18 05:40 White Blood Count 9.6 K/UL (4.8-10.8) 7.9 K/UL (4.8-10.8) Red Blood Count 4.13 M/UL (4.20-5.40) L 3.80 M/UL (4.20-5.40) L Hemoglobin 12.5 G/DL (12.0-16.0) 11.2 G/DL (12.0-16.0) L Hematocrit 34.8 % (37.0-47.0) L 32.5 % (37.0-47.0) L Mean Corpuscular Volume 84 FL (80-99) 86 FL (80-99) Mean Corpuscular Hemoglobin 30.3 PG (27.0-31.0) 29.5 PG (27.0-31.0) Mean Corpuscular Hemoglobin Concent 35.9 G/DL (32.0-36.0) 34.5 G/DL (32.0-36.0) Red Cell Distribution Width 11.6 % (11.6-14.8) 11.8 % (11.6-14.8) Platelet Count 221 K/UL (150-450) 220 K/UL (150-450) Mean Platelet Volume 4.7 FL (6.5-10.1) L 5.1 FL (6.5-10.1) L Neutrophils (%) (Auto) 84.8 % (45.0-75.0) H 61.1 % (45.0-75.0) Lymphocytes (%) (Auto) 12.2 % (20.0-45.0) L 28.8 % (20.0-45.0) Monocytes (%) (Auto) 2.3 % (1.0-10.0) 6.3 % (1.0-10.0) Eosinophils (%) (Auto) 0.1 % (0.0-3.0) 3.0 % (0.0-3.0) Basophils (%) (Auto) 0.6 % (0.0-2.0) 0.8 % (0.0-2.0) Prothrombin Time 11.6 SEC (9.30-11.50) H Prothromb Time International Ratio 1.1 (0.9-1.1) Activated Partial Thromboplast Time 30 SEC (23-33) Sodium Level 137 MMOL/L (136-145) 139 MMOL/L (136-145) Potassium Level 3.6 MMOL/L (3.5-5.1) 3.9 MMOL/L (3.5-5.1) Chloride Level 104 MMOL/L (98-107) 109 MMOL/L (98-107) H Carbon Dioxide Level 23 MMOL/L (21-32) 28 MMOL/L (21-32) Anion Gap 10 mmol/L (5-15) 2 mmol/L (5-15) L Blood Urea Nitrogen 15 mg/dL (7-18) 12 mg/dL (7-18) Creatinine 0.7 MG/DL (0.55-1.30) 0.8 MG/DL (0.55-1.30) Estimat Glomerular Filtration Rate > 60 mL/min (>60) > 60 mL/min (>60) Glucose Level 111 MG/DL (74-106) H 97 MG/DL (74-106) Calcium Level 8.8 MG/DL (8.5-10.1) 8.6 MG/DL (8.5-10.1) Total Bilirubin 0.4 MG/DL (0.2-1.0) 0.6 MG/DL (0.2-1.0) Aspartate Amino Transf (AST/SGOT) 43 U/L (15-37) H 30 U/L (15-37) Alanine Aminotransferase (ALT/SGPT) 61 U/L (12-78) 52 U/L (12-78) Alkaline Phosphatase 108 U/L (46-116) 91 U/L (46-116) Troponin I 0.004 ng/mL (0.000-0.056) Total Protein 9.6 G/DL (6.4-8.2) H 8.2 G/DL (6.4-8.2) Albumin 3.2 G/DL (3.4-5.0) L 2.8 G/DL (3.4-5.0) L Globulin 6.4 g/dL 5.4 g/dL Albumin/Globulin Ratio 0.5 (1.0-2.7) L 0.5 (1.0-2.7) L Lipase 155 U/L (73-393) 211 U/L (73-393) Urine Color Pale yellow Urine Appearance Clear Urine pH 6.0 (4.5-8.0) Urine Specific [place] 1.005 (1.005-1.035) Urine Protein Negative (NEGATIVE) Urine Glucose (UA) Negative (NEGATIVE) Urine Ketones Negative (NEGATIVE) Urine Blood 2+ (NEGATIVE) H Urine Nitrite Negative (NEGATIVE) Urine Bilirubin Negative (NEGATIVE) Urine Urobilinogen Normal MG/DL (0.0-1.0) Urine Leukocyte Esterase 1+ (NEGATIVE) H Urine RBC 5-10 /HPF (0 - 2) H Urine WBC 2-4 /HPF (0 - 2) Urine Squamous Epithelial Cells Moderate /LPF (NONE/OCC) H Urine Amorphous Sediment Few /LPF (NONE) H Urine Bacteria Few /HPF (NONE) Amylase Level 55 U/L (25-115) Height (Feet): 5 Height (Inches): 2.00 Weight (Pounds): 118 Medications Current Medications Medications (Trade) Dose Ordered Sig/Rodney Route PRN Reason Start Time Stop Time Status Last Admin Dose Admin Acetaminophen (Tylenol) 650 mg Q6H PRN ORAL Mild Pain/Temp > 100.5 02/03/18 23:15 03/05/18 23:14 02/04/18 10:40 Acetaminophen/ Hydrocodone Bitart ([place] 5/325) 1 tab Q4H PRN ORAL For Pain 02/03/18 23:45 02/10/18 23:44 Al Hydroxide/Mg Hydroxide (Mylanta) 30 ml Q6H PRN ORAL heartburn 02/04/18 08:00 03/06/18 07:59 Ammonium Lactate (Lac Hydrin) 1 applic BID TOPIC 02/04/18 09:00 03/06/18 08:59 Cyclobenzaprine HCl (Flexeril) 10 mg THREE TIMES A DAY ORAL 02/04/18 09:00 03/06/18 08:59 02/04/18 09:07 Dextrose/Sodium Chloride 1,000 ml @ 75 mls/hr [id number] IV 02/03/18 23:15 03/05/18 23:14 02/04/18 00:46 Famotidine (Pepcid) 20 mg TWICE A DAY ORAL 02/03/18 23:45 03/05/18 23:44 02/04/18 09:05 Meclizine HCl (Antivert) 25 mg THREE TIMES A DAY PRN ORAL for dizziness 02/03/18 23:45 03/05/18 23:44 02/04/18 09:07 Non-Formulary Medication (Non-Formulary Med) 1 ea DAILY ORAL 02/04/18 09:00 03/06/18 08:59 UNV Non-Formulary Medication (Non-Formulary Med) 1 ea DAILY ORAL 02/04/18 09:00 03/06/18 08:59 UNV Non-Formulary Medication (Non-Formulary Med) 1 ea DAILY ORAL 02/04/18 09:00 03/06/18 08:59 UNV Ondansetron HCl (Zofran) 4 mg Q6H PRN IVP Nausea & Vomiting 02/03/18 23:15 03/05/18 23:14 Pantoprazole (Protonix) 40 mg DAILY ORAL 02/04/18 09:00 03/06/18 08:59 02/04/18 09:05 Pregabalin (Lyrica) 50 mg DAILY ORAL 02/04/18 09:00 03/06/18 08:59 Assessment/Plan Assessment/Plan Epigastric abdominal pain, weakness and dizziness, possibly related to infusion of IV Ig for CIDP. No evidence of infection, CVA or ACS. Admit observation, treat with IV fluids, dyspepsia meds and monitor for evidence of further reactions. History of chronic abdominal pain, continue pancreatic enzymes VTE PPx Full Code Margarito Stanley MD Feb 04, 2018 14:07
--- NOTE | 2018-02-04 14:14 | Discharge Summary ---
Discharge Summary Hospital Course Date of Admission Feb 04, 2018 at 0300 Date of Discharge 02/04/18 Admitting Diagnosis polyneuropathy, dehydration, vomitting HPI Kourtney Lopez is a 57 year old female who was admitted on Feb 04 300 for Polyneuropathy,Dehydration,Vomiting Consultations None Procedures None Hospital Course Patient was admitted for observation for epigastric discomfort, nausea, vomiting and general weakness, likely related to IV Ig infusion for CIDP. Labs including CBC, BMP and troponin were unremarkable. She was treated symptomatically with anti-emetics and pain meds with improvement in her condition. She is ambulating independently, tolerating a regular diet Discharge Medications Continued Medications: [Asa/Butal/Caff] () 1 CAP ORAL EVERY 6 HOURS PRN for For Pain (This prescription has been renewed) Aspirin/Caffeine/Butalbital (Fiorinal 50-325-40 mg Capsule) 1 Each Capsule 1 EA PO BID, CAP (This prescription has been renewed) Azithromycin* (Zithromax*) 250 Mg Tablet 250 MG ORAL DAILY, #6 TAB Take two tablets by mouth today, then take one tablet by mouth daily for four days Chlordiazepoxide/Clidinium (Librax Capsule) 1 Each Capsule 1 EA ORAL EVERY 8 HOURS, CAP (This prescription has been renewed) Cyclobenzaprine Hcl* (Flexeril*) 10 Mg Tablet 10 MG ORAL THREE TIMES A DAY, TAB (This prescription has been renewed) Dexlansoprazole (Dexilant) 60 Mg Cap. 60 MG ORAL DAILY, CAP (This prescription has been renewed) Dexlansoprazole (Dexilant) 60 Mg Cap. 60 MG ORAL DAILY, CAP (This prescription has been renewed) Dicyclomine Hcl* (Bentyl*) 10 Mg Capsule 10 MG ORAL FOUR TIMES A DAY, #30 CAP Famotidine (Famotidine) 20 Mg Tablet 20 MG ORAL TWICE A DAY, #60 TAB 0 Refills (This prescription has been renewed) Fluconazole (Fluconazole) 100 Mg Tablet 100 MG ORAL DAILY, #2 TAB 0 Refills Hydrocodone Bit/Acetaminophen 5-325* ([place] 5-325*) 1 Each Tablet 1 TAB ORAL Q6H PRN for For Pain, #10 TAB 0 Refills Immune Globulin,Gamma(Igg) (Privigen) 50 Ml Vial 30 ML IV Q 2 WEEKS, VIAL (This prescription has been renewed) Lipase/Protease/Amylase ([place] 36,000 Units Capsule) 1 Each Capsule.dr 3 EACH PO Q AC, CAP (This prescription has been renewed) Lorazepam* (Lorazepam*) 1 Mg Tablet 1 MG ORAL THREE TIMES A DAY PRN for For Anxiety, TAB (This prescription has been renewed) Meclizine Hcl* (Meclizine*) 25 Mg Tablet 25 MG ORAL THREE TIMES A DAY, TAB (This prescription has been renewed) Methocarbamol* (Robaxin-750*) 750 Mg Tablet 750 MG PO PRN, TAB 0 Refills Nitrofurantoin Monohyd/M-Cryst* (Macrobid 100 Mg*) 100 Mg Capsule 100 MG ORAL EVERY 12 HOURS for 7 Days, CAP Ondansetron (Zofran) 4 Mg Tablet 4 MG ORAL Q6H PRN for Nausea & Vomiting, #30 TAB 0 Refills Phenazopyridine Hcl* (Pyridium*) 200 Mg Tablet 200 MG ORAL THREE TIMES A DAY, #14 TAB 0 Refills Pregabalin* (Lyrica*) 75 Mg Capsule 75 MG ORAL THREE TIMES A DAY, CAP Tramadol Hcl* (Ultram*) 50 Mg Tablet 50 MG ORAL TID, TAB 0 Refills Discontinued Medications: Aspirin/Caffeine/Butalbital (Fiorinal 50-325-40 mg Capsule) 1 Each Capsule 1 EA PO, CAP Hydrocodone Bit/Acetaminophen 5-325* ([place] 5-325*) 1 Each Tablet 1 TAB ORAL Q4-6 PRN for For Pain, TAB 0 Refills Hydrocodone/Acetaminophen 5-325* (Hydrocodone/Acetaminophen 5-325*) 1 Each Tablet 1 TAB ORAL Q4H PRN for For Pain, #30 TAB 0 Refills Lipase/Protease/Amylase (Hope Goodman 36,000 Units Capsule) 1 Each Capsule.dr 1 EACH PO, CAP Meclizine Hcl* (Meclizine*) 25 Mg Tablet 25 MG ORAL DAILY Pregabalin (Lyrica) 50 Mg Capsule 50 MG ORAL DAILY, CAP Discharge Condition Upon Discharge: improving Discharge Disposition Patient was discharged to Home (01) Discharge Diagnoses: (1) Polyneuropathy, dehydration, vomiting (2) CIDP (chronic inflammatory demyelinating polyneuropathy) Margarito Stanley MD Feb 04, 2018 14:14
--- NOTE | 2018-02-04 21:34 | Consultation ---
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 the pt has hx of anxiety and takes ativan outside of the hospital the pt has no si/hi. Allergies: Coded Allergies: CODEINE (Verified Allergy, Unknown, 11/15/17) Chicken Meat (Verified Allergy, Unknown, 11/15/17) IBUPROFEN (Verified Allergy, Unknown, 11/15/17) Meat (Verified Allergy, Unknown, 11/15/17) Medication History Scheduled Aspirin/Caffeine/Butalbital (Fiorinal 50-325-40 mg Capsule), 1 EA PO BID, ( Reported) Azithromycin* (Zithromax*), 250 MG ORAL DAILY Chlordiazepoxide/Clidinium (Librax Capsule), 1 EA ORAL EVERY 8 HOURS, (Reported) Cyclobenzaprine Hcl* (Flexeril*), 10 MG ORAL THREE TIMES A DAY, (Reported) Dexlansoprazole (Dexilant), 60 MG ORAL DAILY, (Reported) Dexlansoprazole (Dexilant), 60 MG ORAL DAILY, (Reported) Dicyclomine Hcl* (Bentyl*), 10 MG ORAL FOUR TIMES A DAY Famotidine (Famotidine), 20 MG ORAL TWICE A DAY, (Reported) Fluconazole (Fluconazole), 100 MG ORAL DAILY Immune Globulin,Gamma(Igg) (Privigen), 30 ML IV Q 2 WEEKS, (Reported) Lipase/Protease/Amylase (Creon Dr 36,000 Units Capsule), 3 EACH PO Q AC, ( Reported) Meclizine Hcl* (Meclizine*), 25 MG ORAL THREE TIMES A DAY, (Reported) Methocarbamol* (Robaxin-750*), 750 MG PO PRN, (Reported) Nitrofurantoin Monohyd/M-Cryst* (Macrobid 100 Mg*), 100 MG ORAL EVERY 12 HOURS Phenazopyridine Hcl* (Pyridium*), 200 MG ORAL THREE TIMES A DAY Pregabalin* (Lyrica*), 75 MG ORAL THREE TIMES A DAY, (Reported) Tramadol Hcl* (Ultram*), 50 MG ORAL TID, (Reported) Scheduled PRN Hydrocodone Bit/Acetaminophen 5-325* ([place] 5-325*), 1 TAB ORAL Q6H PRN for For Pain Lorazepam* (Lorazepam*), 1 MG ORAL THREE TIMES A DAY PRN for For Anxiety, ( Reported) Ondansetron (Zofran), 4 MG ORAL Q6H PRN for Nausea & Vomiting [Asa/Butal/Caff], 1 CAP ORAL EVERY 6 HOURS PRN for For Pain, (Reported) Discontinued Medications Aspirin/Caffeine/Butalbital (Fiorinal 50-325-40 mg Capsule), 1 EA PO, (Reported) Discontinued Reason: MD discontinued med Hydrocodone Bit/Acetaminophen 5-325* ([place] 5-325*), 1 TAB ORAL Q4-6 PRN for For Pain, (Reported) Discontinued Reason: MD discontinued med Hydrocodone/Acetaminophen 5-325* (Hydrocodone/Acetaminophen 5-325*), 1 TAB ORAL Q4H PRN for For Pain, (Reported) Discontinued Reason: MD discontinued med Lipase/Protease/Amylase (Creon Dr 36,000 Units Capsule), 1 EACH PO, (Reported) Discontinued Reason: MD discontinued med Meclizine Hcl* (Meclizine*), 25 MG ORAL DAILY, (Reported) Discontinued Reason: MD discontinued med Pregabalin (Lyrica), 50 MG ORAL DAILY, (Reported) Discontinued Reason: MD discontinued med Patient History Limited by: medical condition History Provided By: Patient, Medical Record, PMD Healthcare decision maker SELF Resuscitation status Full Code Advanced Directive on File Past Medical/Surgical History Past Medical/Surgical History: (1) No tobacco use (2) Chronic tension headache (3) Labyrinthine dysfunction (4) Diarrhea (5) Fatty liver (6) Vertigo (7) Abdominal pain (8) CIDP (chronic inflammatory demyelinating polyneuropathy) (9) Polyneuropathy, dehydration, vomiting Review of Systems Psychiatric: Reports: prior hx, anxiety, depressed feelings, emotional problems Physical Exam General Appearance: no apparent distress, alert Neurologic: oriented x 3, responsive, depressed affect Last 24 Hour Vital Signs Date Time Temp Pulse Resp B/P (MAP) Pulse Ox O2 Delivery O2 Flow Rate FiO2 02/04/18 13:00 98.2 68 20 102/64 (77) 98 98.2 02/04/18 12:00 98.1 65 20 99/61 (74) 98 98.1 9/19/18 09:00 Room Air 02/04/18 08:00 98.1 71 18 104/66 (79) 100 98.1 02/04/18 01:49 Room Air 02/03/18 22:18 97.0 62 20 115/68 (84) 100 97.0 02/03/18 22:05 97.7 63 22 107/47 98 Room Air 97.7 Intake and Output 02/03/18 02/04/18 19:00 07:00 Intake Total 1225 ml Balance 1225 ml Intake IV Total 1075 ml Other 150 ml # Voids 3 # Bowel Movements 1 Laboratory Tests Test 02/04/18 05:40 White Blood Count 7.9 K/UL (4.8-10.8) Red Blood Count 3.80 M/UL (4.20-5.40) L Hemoglobin 11.2 G/DL (12.0-16.0) L Hematocrit 32.5 % (37.0-47.0) L Mean Corpuscular Volume 86 FL (80-99) Mean Corpuscular Hemoglobin 29.5 PG (27.0-31.0) Mean Corpuscular Hemoglobin Concent 34.5 G/DL (32.0-36.0) Red Cell Distribution Width 11.8 % (11.6-14.8) Platelet Count 220 K/UL (150-450) Mean Platelet Volume 5.1 FL (6.5-10.1) L Neutrophils (%) (Auto) 61.1 % (45.0-75.0) Lymphocytes (%) (Auto) 28.8 % (20.0-45.0) Monocytes (%) (Auto) 6.3 % (1.0-10.0) Eosinophils (%) (Auto) 3.0 % (0.0-3.0) Basophils (%) (Auto) 0.8 % (0.0-2.0) Sodium Level 139 MMOL/L (136-145) Potassium Level 3.9 MMOL/L (3.5-5.1) Chloride Level 109 MMOL/L (98-107) H Carbon Dioxide Level 28 MMOL/L (21-32) Anion Gap 2 mmol/L (5-15) L Blood Urea Nitrogen 12 mg/dL (7-18) Creatinine 0.8 MG/DL (0.55-1.30) Estimat Glomerular Filtration Rate > 60 mL/min (>60) Glucose Level 97 MG/DL (74-106) Calcium Level 8.6 MG/DL (8.5-10.1) Total Bilirubin 0.6 MG/DL (0.2-1.0) Aspartate Amino Transf (AST/SGOT) 30 U/L (15-37) Alanine Aminotransferase (ALT/SGPT) 52 U/L (12-78) Alkaline Phosphatase 91 U/L (46-116) Total Protein 8.2 G/DL (6.4-8.2) Albumin 2.8 G/DL (3.4-5.0) L Globulin 5.4 g/dL Albumin/Globulin Ratio 0.5 (1.0-2.7) L Amylase Level 55 U/L (25-115) Lipase 211 U/L (73-393) Height (Feet): 5 Height (Inches): 2.00 Weight (Pounds): 118 Assessment/Plan Assessment/Plan Anxiety d.o sara bennett provided ro/Hawa Michelle MD Feb 04, 2018 21:34
== END 2018-02-04 13:20 | disposition home or self-care (01) ==
LOC: EMR 20:06 → EDBEDREQ 21:28 → INTOOBSV 21:49 → 4E 21:49
DX: G61.81 Chronic inflammatory demyelinating polyneuritis (principal); E86.0 Dehydration; R11.2 Nausea with vomiting, unspecified; Z88.6 Allergy status to analgesic agent; F41.9 Anxiety disorder, unspecified; H83.2X9 Labyrinthine dysfunction, unspecified ear
CPT/HCPCS: 36415 ×2; 80053 ×2; 81003; 82150; 83690 ×2; 84484; 85025 ×2; 85610; 85730; 96360; 96361; 96374; 99285; G0378 ×2; J2405; J7040

== ENCOUNTER 2018-09-07 02:54 | Emergency (ER) | payer MEDICARE, MEDICAID ==
[~2018-09-07] VITALS: Ht 157.5 cm; Wt 62.6 kg
[~2018-09-07 02:54] MED LIST changes: +CYCLOBENZAPRINE10 MG ORAL; +FAMOTIDINE20 MG ORAL; +FIORINAL 50-321 EACH PO; +LIBRAX1 EA ORAL; +LYRICA50 MG ORAL; +PRIVIGEN50 ML IV
[2018-09-07] MEDS ORDERED: BANOPHEN25 MG PO (03:07)
[2018-09-07] MEDS ORDERED: OMEPRAZOLE20 M2 ORAL (03:07)
[2018-09-07] MEDS ORDERED: ABILIFY2 MG ORAL (03:07)
[2018-09-07] MEDS ORDERED: Mylanta II UD 30ml ORAL ONE (03:15)
[2018-09-07] MEDS ORDERED: Lidocaine 2% Visc 15ml soln ORAL ONE (03:15)
--- NOTE | 2018-09-07 03:19 | Emergency Room Report ---
History of Present Illness General Chief Complaint: Abdominal Pain Source: Patient Present Illness HPI This is a 57-year-old female with history of CIDP and also chronic abdominal pain. She presents with chief complaint abdominal pain. This is a chronic problem but worse in the last couple days. Said that better after check Ativan his blood to 3 hours later it comes back again. She says when she eats or drink anything and fell spasm. She has tightness in that area. Already seen a GI doctor. Had colonoscopy done before that was negative. She scheduled for endoscopy in 2 days. Denies any fever or chills. Pain is sharp and crampy make nature. No radiation. Eating makes it worse. Allergies: Coded Allergies: CODEINE (Verified Allergy, Unknown, 11/15/17) Chicken Meat (Verified Allergy, Unknown, 11/15/17) IBUPROFEN (Verified Allergy, Unknown, 11/15/17) Meat (Verified Allergy, Unknown, 11/15/17) Patient History Past Medical History: see triage record, old chart reviewed Past Surgical History: other Pertinent Family History: none Social History: Denies: smoking Last Menstrual Period: BRIANNA Now: No Immunizations: other Reviewed Nursing Documentation: PMH: Agreed; PSxH: Agreed Nursing Documentation-PMH Past Medical History: No History, Except For Hx Cardiac Problems: No - Polyneuropathy, migraine Hx Hypertension: No Hx Pacemaker: No Hx Asthma: No Hx COPD: No Hx Diabetes: No Hx Gastrointestinal Problems: Yes Hx Dialysis: No Hx Neurological Problems: Yes Hx Cerebrovascular Accident: No Hx Seizures: No Hx Vertigo: Yes Hx Dizziness: Yes Hx Headaches: Yes Hx Numbness: Yes - BLE Hx Weakness: Yes - BLE Hx Fatigue: Yes Hx Neurologic Surgery: No Review of Systems Eye: Denies: eye pain, blurred vision ENT: Denies: ear pain, nose congestion, throat swelling Respiratory: Denies: cough, shortness of breath Cardiovascular: Denies: chest pain, palpitations Gastrointestinal: Reports: abdominal pain, nausea, vomiting; Denies: diarrhea Musculoskeletal: Denies: back pain, joint pain Skin: Denies: rash Neurological: Denies: headache, numbness Endocrine: Denies: increased thirst, increased urine Hematologic/Lymphatic: Denies: easy bruising All Other Systems: negative except mentioned in HPI Physical Exam Vital Signs Date Time Temp Pulse Resp B/P (MAP) Pulse Ox O2 Delivery O2 Flow Rate FiO2 4/22/19 03:00 97.3 80 20 121/76 97 Room Air vitals normal Sp02 EP Interpretation: reviewed, normal General Appearance: well appearing, no apparent distress, alert Head: normocephalic, atraumatic Eyes: bilateral eye PERRL, bilateral eye EOMI ENT: hearing grossly normal, normal pharynx Neck: full range of motion, supple, no meningismus Respiratory: chest non-tender, lungs clear, normal breath sounds Cardiovascular #1: regular rate, rhythm, no murmur Gastrointestinal: normal bowel sounds, no mass, no organomegaly, no bruit, non- distended, tenderness - Mild, diffuse, decreased bowel sounds Musculoskeletal: back normal, gait/station normal, normal range of motion Psychiatric: mood/affect normal Skin: warm/dry Medical Decision Making Diagnostic Impression: Primary Impression: Abdominal pain Qualified Codes: R10.84 - Generalized abdominal pain Additional Impression: Acute hypokalemia ER Course Patient with chronic abdominal pain. May be psychogenic in nature. No evidence of obstruction or acute abdomen. Last Vital Signs Date Time Temp Pulse Resp B/P (MAP) Pulse Ox O2 Delivery O2 Flow Rate FiO2 09/07/18 03:00 97.3 80 20 121/76 97 Room Air Status: improved Disposition: HOME, SELF-CARE Condition: Stable Scripts Dicyclomine Hcl* (DICYCLOMINE HCL*) 10 Mg Capsule 10 MG PO QID, #30 CAP Prov: Jeo Walter MD 09/07/18 Referrals: NON PHYSICIAN (PCP) Patient Instructions: Abdominal Pain, Adult Additional Instructions: Keep the appointment for endoscopy in 2 days. Return if symptom worsen. Joe Walter MD Sep 07, 2018 03:19
[2018-09-07 03:38] LABS: APPEARANCE,URINE CLEAR; BILIRUBIN, URINE NEGATIVE (NEGATIVE); COLOR,URINE PALE YELLOW; GLUCOSE, URINE (UA) NEGATIVE (NEGATIVE); KETONES,URINE NEGATIVE (NEGATIVE); LEUKOCYTE ESTERASE ,URINE 1+ (NEGATIVE); NITRITE,URINE NEGATIVE (NEGATIVE); PH,URINE 6 (4.5-8.0); PROTEIN,URINE NEGATIVE (NEGATIVE); UROBILINOGEN,URINE NORMAL MG/DL (0.0-1.0)
[2018-09-07 03:39] VITALS: BP 121/76
[2018-09-07 03:40] LABS: BASOPHILS % (AUTO) 0.8 % (0.0-2.0); EOSINOPHILS % (AUTO) 1.6 % (0.0-3.0); HEMATOCRIT 40.8 % (37.0-47.0); HEMOGLOBIN 13.8 G/DL (12.0-16.0); LYMPHOCYTES % (AUTO) 39.8 % (20.0-45.0); MEAN CORPUSCULAR VOLUME 86 FL (80-99); MONOCYTES % (AUTO) 6.8 % (1.0-10.0); NEUTROPHILS % (AUTO) 51.1 % (45.0-75.0); PLATELET COUNT 249 K/UL (150-450); RED BLOOD COUNT 4.72 M/UL (4.20-5.40); RED CELL DISTRIBUTION WIDTH 11.9 % (11.6-14.8); WHITE BLOOD COUNT 8.1 K/UL (4.8-10.8)
[2018-09-07 03:53] LABS: ANION GAP 8 mmol/L (5-15); BLOOD UREA NITROGEN 17 mg/dL (7-18); CALCIUM 9.4 MG/DL (8.5-10.1); CARBON DIOXIDE 29 MMOL/L (21-32); CHLORIDE 104 MMOL/L (98-107); CREATININE 0.7 MG/DL (0.55-1.30); POTASSIUM 3.1 MMOL/L (3.5-5.1); SODIUM 141 MMOL/L (136-145)
[2018-09-07 03:58] LABS: ALANINE AMINOTRANSFERASE 44 U/L (12-78); ALBUMIN 3.8 G/DL (3.4-5.0); ALBUMIN/GLOBULIN RATIO 0.8 (1.0-2.7); ALKALINE PHOSPHATASE 75 U/L (46-116); ASPARTATE AMINO TRANSFERASE 25 U/L (15-37); BILIRUBIN,TOTAL 0.6 MG/DL (0.2-1.0)
[2018-09-07] MEDS ORDERED: DICYCLOMINE HCL10 MG PO (04:42)
[2018-09-07 04:45] VITALS: BP 118/72
== END 2018-09-07 04:45 | disposition home or self-care (01) ==
LOC: EMR 03:04
DX: R10.84 Generalized abdominal pain (principal); E87.6 Hypokalemia; Z88.6 Allergy status to analgesic agent; Z91.018 Allergy to other foods; G62.9 Polyneuropathy, unspecified; R11.2 Nausea with vomiting, unspecified
CPT/HCPCS: 36415; 80053; 81003; 83690; 85025; 96361; 96374; 99284; J2405; J8499

== ENCOUNTER 2018-09-09 06:48 | Day surgery (SDC) | payer MEDICARE, MEDICAID ==
[~2018-09-09] VITALS: Ht 157.5 cm; Wt 62.1 kg
[2018-09-09] VITALS (9 sets, daily range): BP systolic 100–110; BP diastolic 66–75
[~2018-09-09 06:48] MED LIST changes: +ABILIFY2 MG ORAL; +BANOPHEN25 MG PO; +DICYCLOMINE HCL10 MG PO; +OMEPRAZOLE20 M2 ORAL
[2018-09-09] MEDS ORDERED: LR 1000ml 1,000 ML IV SCH (07:00)
[2018-09-09] MEDS ORDERED: LYRICA50 MG ORAL (07:37)
[2018-09-09] MEDS ORDERED: LR 1000ml 1,000 ML IVLG SCH (07:38)
--- NOTE | 2018-09-09 07:38 | Anethesia Preoperative Eval ---
Anesthesia Pre-op PMH/ROS General Date of Evaluation: Sep 09, 2018 Anesthesiologist: Deven ASA Score: ASA 3 Mallampati Score Class I : Soft palate, uvula, fauces, pillars visible Class II: Soft palate, uvula, fauces visible Class III: Soft palate, base of uvula visible Class IV: Only hard plate visible Mallampati Classification: Class III Surgeon: Hans Diagnosis: Abdominal pain Surgical Procedure: EGD and colonoscopy Anesthesia History: none Family History: no anesthesia problems Allergies: Coded Allergies: Chicken Meat (Verified Allergy, Intermediate, Swelling and flares up neuropathy, 09/09/18) Meat (Verified Allergy, Unknown, 11/15/17) CODEINE (Verified Adverse Reaction, Intermediate, upset stomach, 09/09/18) IBUPROFEN (Verified Adverse Reaction, Unknown, upset stomach, 09/09/18) Medications: see eMAR Patient NPO?: Yes NPO Date: Sep 08, 2018 NPO Time: 22:00 Past Medical History Cardiovascular: Denies: HTN, CAD, PA, valve dz, arrhythmia, other Pulmonary: Denies: asthma, COPD, VÍCTOR, other Gastrointestinal/Genitourinary: Reports: GERD; Denies: CRI, ESRD, other Neurologic/Psychiatric: Reports: depression/anxiety, other - neuropathy BLE, and BUE, vertigo; Denies: dementia, CVA, TIA Endocrine: Denies: DM, hypothyroidism, steroids, other HEENT: Denies: cataract (L), cataract (R), glaucoma, TLINGIT & HAIDA (L), TLINGIT & HAIDA (R), other Hematology/Immune: Denies: anemia, DVT, bleeding disorder, other Musculoskeletal/Integumentary: Denies: OA, RA, DJD, DDD, edema, other PSxH Narrative: lap emanuel, breast sx, BTL Anesthesia Pre-op Phys. Exam Physician Exam see chart Constitutional: other - moderately anxious Cardiovascular: RRR Respiratory: CTA Airway Exam Mallampati Score: Class III Anesthesia Pre-op A/P Labs see chart Studies Pre-op Studies: EKG - sr Risk Assessment & Plan Assessment: ASA III Plan: MAC Status Change Before Surgery: No Pre-Antibiotics Drug: N/A Yandy Groves MD Sep 09, 2018 07:38
[2018-09-09] MEDS ORDERED: DiphenhydrAMINE 50mg/ml Inj IVP PRN (07:45)
[2018-09-09] MEDS ORDERED: Midazolam 2mg/2ml Inj IVP PRN (07:45)
[2018-09-09] MEDS ORDERED: LORazepam Inj 2mg/ml 1ml IV PRN (07:45)
[2018-09-09] MEDS ORDERED: Propofol 200mg/20ml IV ONE (08:00)
[2018-09-09] MEDS ORDERED: Lidocaine 1% MPF 10mg/ml 5ml ONE (08:00)
[2018-09-09] MEDS ORDERED: LR 1000ml ONE (08:00)
--- NOTE | 2018-09-09 08:12 | Short Stay Surgery H&P ---
History of Present Illness History of Present Illness Chief Complaint see typed H&P HPI Kourtney Lopez is a 57 year old female who was admitted on for Abdominal Pain Patient History Allergies: Coded Allergies: Chicken Meat (Verified Allergy, Intermediate, Swelling and flares up neuropathy, 09/09/18) Meat (Verified Allergy, Unknown, 11/15/17) CODEINE (Verified Adverse Reaction, Intermediate, upset stomach, 09/09/18) IBUPROFEN (Verified Adverse Reaction, Unknown, upset stomach, 09/09/18) Relevant Family History: No history of heart disease or stroke Medication History Scheduled Aripiprazole* (Abilify*), 2 MG ORAL DAILY, (Reported) Aspirin/Caffeine/Butalbital (Fiorinal 50-325-40 mg Capsule), 1 EA PO BID, ( Reported) Dicyclomine Hcl* (Dicyclomine Hcl*), 10 MG PO QID Meclizine Hcl* (Meclizine*), 25 MG ORAL THREE TIMES A DAY, (Reported) Omeprazole (Omeprazole), 20 MG ORAL DAILY, (Reported) Scheduled PRN Lorazepam* (Lorazepam*), 1 MG ORAL THREE TIMES A DAY PRN for For Anxiety, ( Reported) Pregabalin (Lyrica), 50 MG ORAL THREE TIMES A DAY PRN for Pain Scale (6-10), ( Reported) Miscellaneous Medications Diphenhydramine Hcl (Banophen), 25 MG PO, (Reported) Discontinued Medications Azithromycin* (Zithromax*), 250 MG ORAL DAILY Discontinued Reason: Therapy completed Chlordiazepoxide/Clidinium (Librax Capsule), 1 EA ORAL EVERY 8 HOURS, (Reported) Discontinued Reason: Therapy completed Cyclobenzaprine Hcl* (Flexeril*), 10 MG ORAL THREE TIMES A DAY, (Reported) Discontinued Reason: Therapy completed Dexlansoprazole (Dexilant), 60 MG ORAL DAILY, (Reported) Discontinued Reason: Therapy completed Dexlansoprazole (Dexilant), 60 MG ORAL DAILY, (Reported) Discontinued Reason: Therapy completed Dicyclomine Hcl* (Bentyl*), 10 MG ORAL FOUR TIMES A DAY Discontinued Reason: Therapy completed Famotidine (Famotidine), 20 MG ORAL TWICE A DAY, (Reported) Discontinued Reason: Therapy completed Fluconazole (Fluconazole), 100 MG ORAL DAILY Discontinued Reason: Therapy completed Hydrocodone Bit/Acetaminophen 5-325* ([place] 5-325*), 1 TAB ORAL Q6H PRN for For Pain Discontinued Reason: Therapy completed Immune Globulin,Gamma(Igg) (Privigen), 30 ML IV Q 2 WEEKS, (Reported) Discontinued Reason: Therapy completed Lipase/Protease/Amylase (Creon Dr 36,000 Units Capsule), 3 EACH PO Q AC, ( Reported) Discontinued Reason: Therapy completed Methocarbamol* (Robaxin-750*), 750 MG PO PRN, (Reported) Discontinued Reason: Therapy completed Nitrofurantoin Monohyd/M-Cryst* (Macrobid 100 Mg*), 100 MG ORAL EVERY 12 HOURS Discontinued Reason: Therapy completed Ondansetron (Zofran), 4 MG ORAL Q6H PRN for Nausea & Vomiting Discontinued Reason: Therapy completed Phenazopyridine Hcl* (Pyridium*), 200 MG ORAL THREE TIMES A DAY Discontinued Reason: Therapy completed Pregabalin* (Lyrica*), 75 MG ORAL THREE TIMES A DAY, (Reported) Discontinued Reason: Therapy completed Tramadol Hcl* (Ultram*), 50 MG ORAL TID, (Reported) Discontinued Reason: Therapy completed [Asa/Butal/Caff], 1 CAP ORAL EVERY 6 HOURS PRN for For Pain, (Reported) Discontinued Reason: Therapy completed Physical Exam Vital Signs Last Vital Signs Date Time Temp Pulse Resp B/P (MAP) Pulse Ox O2 Delivery O2 Flow Rate FiO2 09/09/18 07:46 97.5 84 18 110/70 99 Room Air Plan Attestation Are the patient's medical conditions optimized for surgery? Isael Maxwell MD Sep 09, 2018 08:12
--- NOTE | 2018-09-09 08:13 | Pre-Procedure Note/Attestation ---
Pre-Procedure Note/Attestation Complete Prior to Procedure Planned Procedure: not applicable Procedure Narrative: esophagogastroduodenoscopy colon Indications for Procedure Pre-Operative Diagnosis: abd pain Attestation I attest that I discussed the nature of the procedure; its benefits; risks and complications; and alternatives (and the risks and benefits of such alternatives ), prior to the procedure, with the patient (or the patient's legal roofing sales representative). I attest that, if there was a reasonable possibility of needing a blood transfusion, the patient (or the patient's legal roofing sales representative) was given the [facility] standardized written summary, pursuant to the William Bandar Blood Safety Act ([place] Health and Safety Code # 1645, as amended). I attest that I re-evaluated the patient just prior to the surgery and that there has been no change in the patient's H&P, except as documented below: Isael Maxwell MD Sep 09, 2018 08:13
--- NOTE | 2018-09-09 08:45 | Endoscopy Procedure Note ---
Endoscopy Procedure Note General Indication for Procedure: abd pain Procedures Performed: EGD, colonoscopy Operative Findings/Diagnosis: HH, fundus polyp, rhoid Specimen: yes Pt Tolerated Procedure Well: Yes Estimated Blood Loss: none Anesthesia Anesthesiologist: see report Anesthesia: MAC Medications Medication Given: see anesthesia record Inserted Devices Implant(s) used?: No GI Core Measures 50 yrs or older w/o bx or poly: Not Applicable 10yrs. F/U not recommended: Not Applicable If not recommended, why?: Isael Maxwell MD Sep 09, 2018 08:45
--- NOTE | 2018-09-09 08:46 | Brief Operative Note ---
Immediate Post Operative Note Operative Note Chief Complaint: abd pain Pre-op Diagnosis: abd pain Procedure: E/bx, C/Bx Post-op Diagnosis: HH, cardia polyp , Rhoids Surgeon: elizabeth Anesthesiologist: see report Anesthesia: MAC Specimen: yes Complications: none Condition: stable Fluids: recorded Estimated Blood Loss: none Drains: none Implant(s) used?: No Isael Maxwell MD Sep 09, 2018 08:46
--- NOTE | 2018-09-09 08:47 | Immediate Post-Op Evaluation ---
Immediate Post-Op Evalulation Immediate Post-Op Evalulation Procedure: EGD and colonoscopy Date of Evaluation: Sep 09, 2018 Time of Evaluation: 08:48 IV Fluids: 500 Blood Products: 0 Estimated Blood Loss: 0 Urinary Output: 0 Blood Pressure Systolic: 100 Blood Pressure Diastolic: 68 Pulse Rate: 92 Respiratory Rate: 19 O2 Sat by Pulse Oximetry: 99 Temperature (Fahrenheit): 98.2 Pain Score (1-10): 0 Nausea: No Vomiting: No Complications 0 Patient Status: awake, reacts, patent, none Hydration Status: adequate Drug: N/A Yandy Groves MD Sep 09, 2018 08:47
--- NOTE | 2018-09-09 08:48 | 48 Hour Post Anesthesia Eval ---
Post Anesthesia Evaluation Procedure: EGD and colonoscopy Date of Evaluation: Sep 09, 2018 Airway: patent Nausea: No Vomiting: No Pain Intensity: 0 Hydration Status: adequate Cardiopulmonary Status: at baseline Mental Status/LOC: patient returned to baseline Post-Anesthesia Complications: 0 Follow-up care needed: ready to discharge Yandy Groves MD Sep 09, 2018 08:47
--- NOTE | 2018-09-09 22:00 | Procedure Note ---
DATE OF PROCEDURE: 09/09/2018 PROCEDURE: Upper gastrointestinal endoscopy with biopsy as well as colonoscopy with biopsy. SURGEON: Isael Maxwell M.D. ANESTHESIA: Please see the separate anesthesiologist notes for details. PRE-ENDOSCOPIC DIAGNOSIS: Abdominal pain and elevated inflammatory markers. POST-ENDOSCOPIC DIAGNOSES: 1. A 2 to 3 cm hiatal hernia. 2. Cardia area gastric polyps, status post biopsy removal. 3. Normal terminal ileum to about 10 cm. 4. Mild internal hemorrhoids. DESCRIPTION OF PROCEDURE: The procedure, its risks, indications, alternatives, and possible complications were explained to the patient and informed consent was obtained. The patient was then sedated in the left lateral decubitus position. A diagnostic upper endoscope was introduced through the oropharynx and advanced to the duodenum. The endoscope was then gradually withdrawn and the mucosa was examined carefully. Examination of the upper gastrointestinal mucosa revealed 2 to 3 cm incidental hiatal hernia with a small diminutive polyp within the hernia in the cardia of the stomach. The polyp was removed with the biopsy forceps and random biopsy of the duodenum and the antrum were sent to pathology for review. The endoscope was removed. The rectal exam was done and the colonoscope was introduced in the rectum and advanced to the terminal ileum without difficulty. The terminal ileum was normal for about 10 cm. The colonoscope was then gradually withdrawn and the mucosa examined carefully. Examination of the colonic mucosa revealed no abnormalities as there were also no abnormalities within 10 cm of the terminal ileum. Random biopsy of the terminal ileum, right colon, and left colon were sent to pathology for review. Retroflexed view of the rectum revealed mild internal hemorrhoids. The colonoscope was removed. The patient was sent to recovery in good condition. COMPLICATIONS: None. RECOMMENDATIONS: 1. Follow up biopsy results. 2. Outpatient follow up. Isael Maxwell M.D. DR: POWER JOB#: [id number] CC: Ty Guerrier M.D.; Fax#: [phone]
== END 2018-09-09 10:10 | disposition home or self-care (01) ==
LOC: GAS 06:48
DX: R10.9 Unspecified abdominal pain (principal); K44.9 Diaphragmatic hernia without obstruction or gangrene; K29.50 Unspecified chronic gastritis without bleeding; K31.7 Polyp of stomach and duodenum; K64.8 Other hemorrhoids; I51.89 Other ill-defined heart diseases; K21.9 Gastro-esophageal reflux disease without esophagitis; F41.9 Anxiety disorder, unspecified; F32.9 Major depressive disorder, single episode, unspecified; G62.9 Polyneuropathy, unspecified; Z90.49 Acquired absence of other specified parts of digestive tract; Z79.82 Long term (current) use of aspirin; Z91.018 Allergy to other foods; Z88.6 Allergy status to analgesic agent; Z79.899 Other long term (current) drug therapy
CPT/HCPCS: 43239; 45380; J2704; 94003; 94150